=== PATIENT | female | born 1990 | race Caucasian/White ===

== ENCOUNTER 2019-02-01 06:36 | Emergency (ER) | payer OTHER ==
[~2019-02-01] VITALS: Ht 165.1 cm; Wt 104.3 kg
[2019-02-01 06:45] VITALS: BP 117/70
[2019-02-01] MEDS ORDERED: AMOX500T PO (07:10)
[2019-02-01] MEDS ORDERED: PROM118S9 PO (07:10)
[2019-02-01] MEDS ORDERED: MELO7.5T29 PO (07:10)
--- NOTE | 2019-02-01 07:10 | PHYS DOC ---
Past History Past Medical History: No Pertinent History Past Surgical History: No Surgical History Smoking: Non-smoker Alcohol Use: None Drug Use: None Adult General Chief Complaint Chief Complaint: EARACHE/EAR PAIN HPI HPI Patient is a 28-year-old female presents with bilateral ear pain. Right ears started several days ago, left ear started this morning. No drainage from the ear. Muffled sounds from the right side. She has had nasal congestion as well for the past several days. No improvement in the nasal congestion with Mucinex DM. No significant improvement in pain with ibuprofen. No nausea or vomiting. No fever. No recent travel or trauma. No radiation of the discomfort. Symptoms are moderate in intensity.[] Review of Systems Review of Systems Constitutional: Denies fever or chills [] Eyes: Denies change in visual acuity, redness, or eye pain [] HENT: See history of present illness, no sore throat[] Respiratory: Denies cough or shortness of breath [] Cardiovascular: No chest pain or palpitations[] GI: Denies abdominal pain, nausea, vomiting, bloody stools or diarrhea [] : Denies dysuria or hematuria [] Musculoskeletal: Denies back pain or joint pain [] Integument: Denies rash or skin lesions [] Neurologic: Denies headache, focal weakness or sensory changes [] Endocrine: Denies polyuria or polydipsia [] All other systems were reviewed and found to be within normal limits, except as documented in this note. Physical Exam Physical Exam Constitutional: Well developed, well nourished, no acute distress, non-toxic appearance. [] HENT: Normocephalic, atraumatic, bilateral external ears normal, no pain with tragus tug. No mastoid tenderness. No significant bulge or effusion from either TM. Oropharynx moist, no oral exudates, nose normal. [] Eyes: PERRLA, EOMI, conjunctiva normal, no discharge. [] Neck: Normal range of motion, no tenderness, supple, no stridor. [] Cardiovascular:Heart rate regular rhythm, no murmur [] Lungs & Thorax: Bilateral breath sounds clear to auscultation [] Abdomen: Not examined. [] Skin: Warm, dry, no erythema, no rash. [] Back: No tenderness, no CVA tenderness. [] Extremities: No tenderness, no cyanosis, no clubbing, ROM intact, no edema. [] Neurologic: Alert and oriented X 3, normal motor function, normal sensory function, no focal deficits noted. [] Psychologic: Affect normal, judgement normal, mood normal. [] EKG EKG [] Radiology/Procedures Radiology/Procedures [] Course & Med Decision Making Course & Med Decision Making Pertinent Labs and Imaging studies reviewed. (See chart for details) Medical decision-making: Believe this to be eustachian tube dysfunction due to the rhinorrhea. Will work on improving this piece will prescribe "just in case" antibiotics if conservative measures fail. No evidence of mastoiditis, meningitis, or significant systemic toxicity. ED course: Patient arrived, was placed in bed, and tolerated exam well. Findings and plan were discussed with the patient voiced understanding. All questions were answered. She was discharged in improved condition.[] Dragon Disclaimer Dragon Disclaimer This electronic medical record was generated, in whole or in part, using a voice recognition dictation system. Departure Departure: Impression: Primary Impression: Upper respiratory infection Additional Impression: Eustachian tube dysfunction Disposition: 01 HOME, SELF-CARE Condition: IMPROVED Referrals: PCP,NO (PCP) Patient Instructions: Upper Respiratory Infection, Adult Additional Instructions: Follow-up with your regular doctor in 2 days. If you do not have regular doctor list of local clinics will be provided for you. Weight 2 days before starting the amoxicillin. If improved symptoms with the other medicines, do not take the amoxicillin at all. If no improvement, take the amoxicillin as directed. Return to the ER if worsening pain or any other concerns. EUSTACHIAN TUBE DYSFUNCTION The eustachian tube is a small canal that connects the middle ear to the back of the nose and upper throat (nasopharynx). Its purpose is to equalize the air pressure in the middle ear with the pressure outside it. Eustachian tube dysfunction (ETD) occurs when the tube fails to open during swallowing or yawning. This results in a difference between the air pressure inside and outside the middle ear. It causes discomfort in the ear and temporary hearing problems. Causes The ear may feel blocked if the pressure outside the ear changes, but the pressure inside the ear does not change. When this happens, the eardrum cannot vibrate normally. It often occurs during altitude changes, like flying in an airplane, driving on steep hills, or scuba diving. Swallowing, yawning, or chewing usually make the symptoms go away. ETD occurs if the tube is blocked or swollen, trapping air and fluids in the middle ear. This causes symptoms to continue beyond a few hours. Sometimes it can lead to ear damage. Causes include: Nasal congestion from an allergy Cold other upper respiratory infection Ear or sinus infections Narrow eustachian tube Adenoid tissue blocking eustachian tube (in children) Risk Factors A risk factor is something that increases your chance of getting ETD. Tell your doctor if you have any of these factors: Activities with large, rapid altitude changes, such as flying in an airplane or scuba diving Allergy, cold, or other upper respiratory infection Ear or sinus infection Narrow eustachian tube Presence of obstructing tumors in the nasopharynx Children with large adenoids Age: Children (Their eustachian tubes are narrower.) Environmental allergies Symptoms Feeling of fullness or clogging in the ear Discomfort or pain in the ear Hearing loss Ringing in the ear ( tinnitus ) Dizziness Symptoms cannot be relieved by swallowing, yawning, or chewing Pain if the blockage results in an infection Treatment To deal with ear clogging, discomfort, or pain, you can try: Swallowing, yawning, or chewing gum to relieve the pressure Clearing your ears by breathing in and then gently breathing out while holding your nostrils and mouth closed If the symptoms do not go away within a few hours or are severe, your doctor may recommend the following medications: Nasal or oral decongestants Oral antihistamines Nasal steroids to relieve nasal congestion and enable the eustachian tube to open Pain medications (eg, acetaminophen or ibuprofen ) Scripts D-Methorphan Hb/Prometh Hcl (PROMETHAZINE-DM SYRUP) 118 Ml Syrup 5 ML PO PRN Q4HRS for CONGESTION, #120 ML Prov: MARLI GUTIERREZ DO 02/01/19 Meloxicam (MELOXICAM) 7.5 Mg Tablet 7.5 MG PO DAILY for PAIN, #20 TAB Prov: MARLI GUTIERREZ DO 02/01/19 Amoxicillin (AMOXICILLIN) 500 Mg Tablet 500 MG PO TID for ear infection for 10 Days, #30 TAB Prov: MARLI GUTIERREZ DO 02/01/19 Problem Qualifiers Primary Impression: Upper respiratory infection URI type: unspecified URI Qualified Codes: J06.9 - Acute upper respiratory infection, unspecified Additional Impression: Eustachian tube dysfunction Laterality: bilateral Qualified Codes: H69.83 - Other specified disorders of eustachian tube, bilateral MARLI GUTIERREZ DO Feb 01, 2019 07:10
== END 2019-02-01 07:11 | disposition home or self-care (01) ==
LOC: ER 06:36
DX: H69.83 Other specified disorders of Eustachian tube, bilateral (principal); J06.9 Acute upper respiratory infection, unspecified
CPT/HCPCS: 99283